=== PATIENT | female | born 1980 | race Caucasian/White ===

== ENCOUNTER 2017-11-21 12:04 | Inpatient (IN) | payer MEDICAID ==
[2017-11-21 12:50] LABS: ADD UMIC NO; UR ASCORBIC ACID NEGATIVE (NEGATIVE); UR BILIRUBIN (Dip) NEGATIVE (NEGATIVE); UR BLOOD (Dip) NEGATIVE (NEGATIVE); UR CLARITY CLEAR (CLEAR); UR COLOR STRAW (YELLOW); UR GLUCOSE (Dip) NEGATIVE (NEGATIVE); UR KETONES (Dip) NEGATIVE (NEGATIVE); UR LEUKOCYTE ESTERASE (Dip) NEGATIVE Leu/ul (NEGATIVE); UR NITRITE (Dip) NEGATIVE (NEGATIVE); UR SPECIFIC GRAVITY (Dip) 1.003 (1.003-1.030); UR TOTAL PROTEIN (Dip) NEGATIVE (NEGATIVE); UR UROBILINOGEN (Dip) NEGATIVE (NEGATIVE)
[2017-11-21 13:42] LABS: ADD MAN DIFF? NO
[2017-11-21 13:44] LABS: BASOPHILS % 0.4 % (0.0-2.0); EOSINOPHILS # 0.2 10^3/ul (0.0-0.5); EOSINOPHILS % 1.5 % (0.0-7.0); HEMATOCRIT 34.3 % (37.0-47.0); LYMPHOCYTES # 2.5 10^3/ul (0.8-2.9); LYMPHOCYTES % 22.9 % (15.0-51.0); MEAN CORPUSCULAR HEMOGLOBIN 28.6 pg (29.0-33.0); MEAN CORPUSCULAR VOLUME 81.7 fl (82.0-101.0); MEAN PLATELET VOLUME 9.5 fl (7.4-10.4); MONOCYTE # 0.8 10^3/ul (0.3-0.9); MONOCYTES % 7.5 % (0.0-11.0); NEUTROPHIL # 7.3 10^3/ul (1.6-7.5); NEUTROPHILS % 66.3 % (39.0-77.0); PLATELET COUNT 324 10^3/UL (140-415); RED CELL DISTRIBUTION WIDTH 13.9 % (11.5-14.5)
[2017-11-21 14:02] LABS: ALANINE AMINOTRANSFERASE 22 IU/L (13-69); ALBUMIN 3.6 g/dl (3.3-4.9); ALKALINE PHOSPHATASE 274 IU/L (42-121); ANION GAP 17 (8-16); ASPARTATE AMINO TRANSFERASE 18 IU/L (15-46); BILIRUBIN,INDIRECT 0.1 mg/dl (0-1.1); BILIRUBIN,TOTAL 0.1 mg/dl (0.2-1.3); BLOOD UREA NITROGEN 4 mg/dl (7-20); CALCIUM 8.9 mg/dl (8.4-10.2); CARBON DIOXIDE 20 mmol/L (21-31); CHLORIDE 108 mmol/L (97-110); CREATININE 0.43 mg/dl (0.44-1.00); GLUCOSE 68 mg/dl (70-220); POTASSIUM 3.5 mmol/L (3.5-5.1); SODIUM 141 mmol/L (135-144); TOTAL PROTEIN 6.6 g/dl (6.1-8.1); URIC ACID 4.1 mg/dl (3.1-7.9)
[2017-11-21 14:03] LABS: INR 1.09; PARTIAL THROMBOPLASTIN TIME 34.5 Sec (25.0-35.0); PROTIME 14.2 Sec (11.9-14.9); PT RATIO 1.1
[2017-11-21] MEDS: BETAMET NA PHOS/AC(6 MG/ML) 5ML INJ IM ×2 (15:30→15:56)
[2017-11-21] MEDS: LACTATED RINGER'S 1,000 ML IV ×3 (15:51→23:37)
[2017-11-21] MEDS: METHYLDOPA 500 MG TAB PO (21:52)
[2017-11-21] MEDS: URSODIOL 300 MG CAP PO (21:53)
[2017-11-22] MEDS: METHYLDOPA 500 MG TAB PO ×3 (01:00→21:37)
[2017-11-22] MEDS: LACTATED RINGER'S 1,000 ML IV ×2 (07:23→15:28)
[2017-11-22 07:55] LABS: ADD MAN DIFF? NO
[2017-11-22 08:03] LABS: WHITE BLOOD COUNT 11.1 10^3/ul (4.8-10.8)
[2017-11-22 08:03] LABS: BASOPHILS % 0.2 % (0.0-2.0); EOSINOPHILS % 0.1 % (0.0-7.0); HEMATOCRIT 33.7 % (37.0-47.0); HEMOGLOBIN 11.5 g/dl (12.0-16.0); LYMPHOCYTES # 2.1 10^3/ul (0.8-2.9); LYMPHOCYTES % 19.1 % (15.0-51.0); MEAN CORPUSCULAR HEMOGLOBIN 28.3 pg (29.0-33.0); MEAN CORPUSCULAR HGB CONC 34.1 g/dl (32.0-37.0); MEAN CORPUSCULAR VOLUME 82.8 fl (82.0-101.0); MEAN PLATELET VOLUME 9.5 fl (7.4-10.4); MONOCYTE # 0.8 10^3/ul (0.3-0.9); MONOCYTES % 6.8 % (0.0-11.0); NEUTROPHILS % 72.1 % (39.0-77.0); PLATELET COUNT 306 10^3/UL (140-415); RED BLOOD COUNT 4.07 10^6/ul (4.20-5.40); RED CELL DISTRIBUTION WIDTH 13.7 % (11.5-14.5)
[2017-11-22 08:17] LABS: INR 1.14; PROTIME 14.8 Sec (11.9-14.9); PT RATIO 1.2
[2017-11-22 08:18] LABS: PARTIAL THROMBOPLASTIN TIME 31.5 Sec (25.0-35.0)
[2017-11-22 08:24] LABS: ALANINE AMINOTRANSFERASE 25 IU/L (13-69); ALBUMIN 3.4 g/dl (3.3-4.9); ALBUMIN/GLOBULIN RATIO 1.13; ALKALINE PHOSPHATASE 255 IU/L (42-121); ANION GAP 18 (8-16); ASPARTATE AMINO TRANSFERASE 15 IU/L (15-46); BILIRUBIN,INDIRECT 0.3 mg/dl (0-1.1); BILIRUBIN,TOTAL 0.3 mg/dl (0.2-1.3); BLOOD UREA NITROGEN 5 mg/dl (7-20); CARBON DIOXIDE 19 mmol/L (21-31); CHLORIDE 111 mmol/L (97-110); CREATININE 0.44 mg/dl (0.44-1.00); GLUCOSE 91 mg/dl (70-220); POTASSIUM 3.7 mmol/L (3.5-5.1); SODIUM 144 mmol/L (135-144); TOTAL PROTEIN 6.4 g/dl (6.1-8.1); URIC ACID 4.6 mg/dl (3.1-7.9)
[2017-11-22] MEDS: DOCUSATE SODIUM 100 MG CAP PO (09:06)
[2017-11-22] MEDS: PRENATAL VITAMIN PO (09:06)
[2017-11-22] MEDS: URSODIOL 300 MG CAP PO ×3 (09:07→21:38)
[2017-11-22] MEDS: BETAMET NA PHOS/AC(6 MG/ML) 5ML INJ IM (15:40)
[2017-11-22 15:56] LABS: COLLECTION PERIOD 24 hrs
[2017-11-22 17:18] LABS: COLLECTION PERIOD 24 hrs; CREATININE,URINE RANDOM 23.73 mg/dl (20-320); VOLUME 5250 ml/24hrs
[2017-11-22 17:19] LABS: CREATININE CLEARANCE 196.6 mls/min (84.0-162.0); SCRET 0.44 mg/dl (0.44-1.00); VOLUME 5250 mls
[2017-11-23] MEDS: LACTATED RINGER'S 1,000 ML IV (00:14)
[2017-11-23] MEDS: PRENATAL VITAMIN PO (09:00)
[2017-11-23] MEDS: URSODIOL 300 MG CAP PO (09:00)
[2017-11-23] MEDS: METHYLDOPA 500 MG TAB PO (09:01)
[2017-11-23] MEDS: DOCUSATE SODIUM 100 MG CAP PO (09:05)
== END 2017-11-23 10:02 | disposition home or self-care (01) | DRG 781 ==
LOC: OBT 12:04 → L-D 12:05 → OBT 15:00 → L-D 15:00
DX: O26.613 Liver and biliary tract disorders in pregnancy, third trimester (principal); K83.1 Obstruction of bile duct; O16.3 Unspecified maternal hypertension, third trimester; Z3A.33 33 weeks gestation of pregnancy
CPT/HCPCS: 76815; 76818; 76820; 80053; 81003; 82575; 84156; 84560; 85025; 85384; 85610; 85730

== ENCOUNTER 2017-11-26 12:32 | Outpatient (CLI) | payer MEDICAID ==
[2017-11-26 13:50] LABS: ADD MAN DIFF? NO
[2017-11-26 13:52] LABS: WHITE BLOOD COUNT 13.9 10^3/ul (4.8-10.8)
[2017-11-26 13:52] LABS: BASOPHIL # 0.1 10^3/ul (0.0-0.1); BASOPHILS % 0.4 % (0.0-2.0); EOSINOPHILS # 0.2 10^3/ul (0.0-0.5); EOSINOPHILS % 1.7 % (0.0-7.0); HEMATOCRIT 37.5 % (37.0-47.0); HEMOGLOBIN 12.9 g/dl (12.0-16.0); LYMPHOCYTES # 2.5 10^3/ul (0.8-2.9); LYMPHOCYTES % 18.2 % (15.0-51.0); MEAN CORPUSCULAR HEMOGLOBIN 28.2 pg (29.0-33.0); MEAN CORPUSCULAR HGB CONC 34.4 g/dl (32.0-37.0); MEAN CORPUSCULAR VOLUME 81.9 fl (82.0-101.0); MEAN PLATELET VOLUME 9.2 fl (7.4-10.4); MONOCYTE # 1.1 10^3/ul (0.3-0.9); MONOCYTES % 8.1 % (0.0-11.0); NEUTROPHIL # 9.7 10^3/ul (1.6-7.5); NEUTROPHILS % 69.8 % (39.0-77.0); PLATELET COUNT 337 10^3/UL (140-415); RED BLOOD COUNT 4.58 10^6/ul (4.20-5.40)
[2017-11-26 14:11] LABS: URIC ACID 3.8 mg/dl (3.1-7.9)
[2017-11-26 14:12] LABS: ALANINE AMINOTRANSFERASE 25 IU/L (13-69); ALBUMIN 3.8 g/dl (3.3-4.9); ALBUMIN/GLOBULIN RATIO 1.08; ALKALINE PHOSPHATASE 286 IU/L (42-121); ANION GAP 18 (8-16); ASPARTATE AMINO TRANSFERASE 15 IU/L (15-46); BILIRUBIN,INDIRECT 0.3 mg/dl (0-1.1); BILIRUBIN,TOTAL 0.3 mg/dl (0.2-1.3); BLOOD UREA NITROGEN 7 mg/dl (7-20); CALCIUM 9.9 mg/dl (8.4-10.2); CARBON DIOXIDE 19 mmol/L (21-31); CHLORIDE 108 mmol/L (97-110); CREATININE 0.43 mg/dl (0.44-1.00); GLUCOSE 79 mg/dl (70-220); POTASSIUM 3.7 mmol/L (3.5-5.1); SODIUM 141 mmol/L (135-144); TOTAL PROTEIN 7.3 g/dl (6.1-8.1)
[2017-11-26 14:27] LABS: ADD UMIC NO; UR ASCORBIC ACID NEGATIVE (NEGATIVE); UR BILIRUBIN (Dip) NEGATIVE (NEGATIVE); UR BLOOD (Dip) NEGATIVE (NEGATIVE); UR CLARITY CLEAR (CLEAR); UR COLOR STRAW (YELLOW); UR GLUCOSE (Dip) NEGATIVE (NEGATIVE); UR KETONES (Dip) NEGATIVE (NEGATIVE); UR LEUKOCYTE ESTERASE (Dip) NEGATIVE Leu/ul (NEGATIVE); UR NITRITE (Dip) NEGATIVE (NEGATIVE); UR SPECIFIC GRAVITY (Dip) 1.003 (1.003-1.030); UR TOTAL PROTEIN (Dip) NEGATIVE (NEGATIVE); UR UROBILINOGEN (Dip) NEGATIVE (NEGATIVE)
== END 2017-11-26 16:04 | disposition home or self-care (01) ==
LOC: OBT 12:32 → L-D 12:34 → OBT 16:04
DX: O24.410 Gestational diabetes mellitus in pregnancy, diet controlled (principal); Z3A.34 34 weeks gestation of pregnancy
CPT/HCPCS: 76815; 80053; 81003; 84560; 85025

== ENCOUNTER 2017-11-28 08:37 | Outpatient (CLI) | payer MEDICAID ==
[2017-11-28 09:29] LABS: ADD MAN DIFF? NO
[2017-11-28 09:35] LABS: BASOPHILS % 0.3 % (0.0-2.0); EOSINOPHILS # 0.2 10^3/ul (0.0-0.5); EOSINOPHILS % 1.6 % (0.0-7.0); HEMATOCRIT 35.3 % (37.0-47.0); HEMOGLOBIN 12.2 g/dl (12.0-16.0); LYMPHOCYTES # 2.3 10^3/ul (0.8-2.9); LYMPHOCYTES % 19.4 % (15.0-51.0); MEAN CORPUSCULAR HEMOGLOBIN 28.1 pg (29.0-33.0); MEAN CORPUSCULAR HGB CONC 34.6 g/dl (32.0-37.0); MEAN CORPUSCULAR VOLUME 81.3 fl (82.0-101.0); MEAN PLATELET VOLUME 9.4 fl (7.4-10.4); MONOCYTES % 8.5 % (0.0-11.0); NEUTROPHIL # 8.1 10^3/ul (1.6-7.5); NEUTROPHILS % 68.3 % (39.0-77.0); NUCLEATED RED BLOOD CELLS% 0.3 /100WBC (0.0-0.0); PLATELET COUNT 319 10^3/UL (140-415); RED BLOOD COUNT 4.34 10^6/ul (4.20-5.40); RED CELL DISTRIBUTION WIDTH 14.2 % (11.5-14.5)
[2017-11-28 09:35] LABS: WHITE BLOOD COUNT 11.8 10^3/ul (4.8-10.8)
[2017-11-28 09:39] LABS: COLLECTION PERIOD 24 hrs
[2017-11-28 09:50] LABS: ALANINE AMINOTRANSFERASE 21 IU/L (13-69); ALBUMIN 3.7 g/dl (3.3-4.9); ALBUMIN/GLOBULIN RATIO 1.08; ALKALINE PHOSPHATASE 321 IU/L (42-121); ANION GAP 18 (8-16); ASPARTATE AMINO TRANSFERASE 15 IU/L (15-46); BILIRUBIN,INDIRECT 0.2 mg/dl (0-1.1); BILIRUBIN,TOTAL 0.2 mg/dl (0.2-1.3); BLOOD UREA NITROGEN 5 mg/dl (7-20); CALCIUM 8.9 mg/dl (8.4-10.2); CARBON DIOXIDE 21 mmol/L (21-31); CHLORIDE 107 mmol/L (97-110); CREATININE 0.42 mg/dl (0.44-1.00); GLUCOSE 78 mg/dl (70-220); POTASSIUM 3.7 mmol/L (3.5-5.1); SODIUM 142 mmol/L (135-144); TOTAL PROTEIN 7.1 g/dl (6.1-8.1); URIC ACID 4.2 mg/dl (3.1-7.9)
[2017-11-28 09:54] LABS: INR 1.08; PROTIME 14.1 Sec (11.9-14.9); PT RATIO 1.1
[2017-11-28 09:55] LABS: PARTIAL THROMBOPLASTIN TIME 32.6 Sec (25.0-35.0)
[2017-11-28 10:08] LABS: COLLECTION PERIOD 24 hrs; CREATININE CLEARANCE 141.7 mls/min (84.0-162.0); CREATININE,URINE RANDOM 34.69 mg/dl (20-320); SCRET 0.42 mg/dl (0.44-1.00); VOLUME 2470 ml/24hrs; VOLUME 2470 mls
[2017-11-28 10:09] LABS: 24HR URINE TOTAL PROTEIN 370.5 mg/24hrs (42.0-225.0)
== END 2017-11-28 11:10 | disposition home or self-care (01) ==
LOC: OBT 08:37 → L-D 08:39 → OBT 11:10
DX: O26.893 Other specified pregnancy related conditions, third trimester (principal); R10.9 Unspecified abdominal pain; R10.2 Pelvic and perineal pain; Z3A.34 34 weeks gestation of pregnancy
CPT/HCPCS: 36415; 76818; 80053; 82575; 84156; 84560; 85025; 85610; 85730

== ENCOUNTER 2017-12-11 18:42 | Inpatient (IN) | payer MEDICAID ==
[2017-12-11 19:35] LABS: ALANINE AMINOTRANSFERASE 18 IU/L (13-69); ALBUMIN 3.4 g/dl (3.3-4.9); ALKALINE PHOSPHATASE 404 IU/L (42-121); ANION GAP 17 (8-16); ASPARTATE AMINO TRANSFERASE 14 IU/L (15-46); BILIRUBIN,INDIRECT 0.1 mg/dl (0-1.1); BILIRUBIN,TOTAL 0.1 mg/dl (0.2-1.3); BLOOD UREA NITROGEN 5 mg/dl (7-20); CARBON DIOXIDE 21 mmol/L (21-31); CHLORIDE 107 mmol/L (97-110); CREATININE 0.56 mg/dl (0.44-1.00); GLUCOSE 90 mg/dl (70-220); POTASSIUM 3.7 mmol/L (3.5-5.1); SODIUM 141 mmol/L (135-144); TOTAL PROTEIN 6.8 g/dl (6.1-8.1)
[2017-12-11] MEDS ORDERED: CARBOPROST 250 MCG INJ IM (20:30)
[2017-12-11] MEDS ORDERED: OXYTOCIN 30 UNITS/LR 500 ML IV (20:30)
[2017-12-11] MEDS ORDERED: MISOPROSTOL 200 MCG TAB PR (20:30)
[2017-12-11] MEDS ORDERED: METHYLERGONOVINE 0.2 MG INJ IM (20:30)
[2017-12-11 20:48] LABS: ADD UMIC NO; UR ASCORBIC ACID NEGATIVE (NEGATIVE); UR BILIRUBIN (Dip) NEGATIVE (NEGATIVE); UR BLOOD (Dip) NEGATIVE (NEGATIVE); UR CLARITY CLEAR (CLEAR); UR COLOR YELLOW (YELLOW); UR GLUCOSE (Dip) NEGATIVE (NEGATIVE); UR KETONES (Dip) NEGATIVE (NEGATIVE); UR LEUKOCYTE ESTERASE (Dip) NEGATIVE Leu/ul (NEGATIVE); UR NITRITE (Dip) NEGATIVE (NEGATIVE); UR SPECIFIC GRAVITY (Dip) 1.006 (1.003-1.030); UR TOTAL PROTEIN (Dip) NEGATIVE (NEGATIVE); UR UROBILINOGEN (Dip) NEGATIVE (NEGATIVE)
[2017-12-11 20:50] LABS: ADD MAN DIFF? NO
[2017-12-11 20:52] LABS: WHITE BLOOD COUNT 10.9 10^3/ul (4.8-10.8)
[2017-12-11 20:52] LABS: BASOPHILS % 0.3 % (0.0-2.0); EOSINOPHILS # 0.1 10^3/ul (0.0-0.5); EOSINOPHILS % 1.3 % (0.0-7.0); HEMOGLOBIN 12.3 g/dl (12.0-16.0); LYMPHOCYTES # 2.4 10^3/ul (0.8-2.9); LYMPHOCYTES % 22.3 % (15.0-51.0); MEAN CORPUSCULAR HEMOGLOBIN 27.8 pg (29.0-33.0); MEAN CORPUSCULAR HGB CONC 34.2 g/dl (32.0-37.0); MEAN CORPUSCULAR VOLUME 81.4 fl (82.0-101.0); MEAN PLATELET VOLUME 9.8 fl (7.4-10.4); MONOCYTE # 0.9 10^3/ul (0.3-0.9); MONOCYTES % 8.5 % (0.0-11.0); NEUTROPHIL # 7.4 10^3/ul (1.6-7.5); NEUTROPHILS % 67.1 % (39.0-77.0); PLATELET COUNT 338 10^3/UL (140-415); RED BLOOD COUNT 4.42 10^6/ul (4.20-5.40); RED CELL DISTRIBUTION WIDTH 13.6 % (11.5-14.5)
[2017-12-11 21:13] LABS: PROTIME 13.3 Sec (11.9-14.9)
[2017-12-11 21:14] LABS: PARTIAL THROMBOPLASTIN TIME 34.7 Sec (25.0-35.0)
[2017-12-11] MEDS: URSODIOL 300 MG CAP PO (21:21)
[2017-12-11] MEDS: METHYLDOPA 500 MG TAB PO (21:21)
[2017-12-11] MEDS: BETAMET NA PHOS/AC(6 MG/ML) 5ML INJ IM (21:22)
[2017-12-11 21:44] LABS: HEPATITIS B SURFACE ANTIGEN NEGATIVE (NEGATIVE)
[2017-12-11] MEDS: LACTATED RINGER'S 1,000 ML IV (22:00)
[2017-12-12] MEDS: DEXTROSE 5%-LR 1,000 ML IV (01:30)
[2017-12-12] MEDS: LACTATED RINGER'S 1,000 ML IV ×4 (06:40→20:25)
[2017-12-12] MEDS ORDERED: OXYTOCIN 30 UNITS/LR 500 ML BAG IV (07:00)
[2017-12-12] MEDS: URSODIOL 300 MG CAP PO ×2 (08:39→21:00)
[2017-12-12] MEDS: METHYLDOPA 500 MG TAB PO ×2 (08:39→21:00)
[2017-12-12] MEDS: BETAMET NA PHOS/AC(6 MG/ML) 5ML INJ IM (08:56)
[2017-12-12 15:07] LABS: RAPID PLASMA REAGIN NONREACTIVE (NR)
[2017-12-12] MEDS ORDERED: TERBUTALINE 1 MG/ML INJ SC (17:30)
[2017-12-12] MEDS ORDERED: BUPIVACAINE 0.75%/DEXT (SPINAL) 2 ML INJ (21:13)
[2017-12-12] MEDS ORDERED: morphine SULFATE/PF (10 MG/10 ML) INJ (21:14)
[2017-12-12] MEDS ORDERED: PHENYLephrine (100 MCG/ML) 5ML SYG ×2 (21:48→22:33)
[2017-12-12] MEDS ORDERED: FENTAnyl 50 MCG/ML VIAL (22:24)
[2017-12-12] MEDS: OXYTOCIN 30 UNITS/LR 500 ML IV (23:14)
[2017-12-12] MEDS: CEFAZOLIN 2 GM/50 ML (PMX) 50 ML IV (23:15)
[2017-12-12] MEDS ORDERED: MISOPROSTOL 200 MCG TAB PR (23:30)
[2017-12-12] MEDS ORDERED: METHYLERGONOVINE 0.2 MG TAB PO (23:30)
[2017-12-12] MEDS ORDERED: LANOLIN 7 GM TUBE TOP (23:30)
[2017-12-12] MEDS ORDERED: METHYLERGONOVINE 0.2 MG INJ IM (23:30)
[2017-12-12] MEDS ORDERED: OXYTOCIN 30 UNITS/LR 500 ML IV (23:30)
[2017-12-12] MEDS ORDERED: CARBOPROST 250 MCG INJ IM (23:30)
[2017-12-12] MEDS: KETOROLAC 30 MG INJ IV (23:36)
[2017-12-13] MEDS ORDERED: DIPHENHYDRAMINE 50 MG INJ IV ×2
[2017-12-13] MEDS ORDERED: NALOXONE (0.4 MG/ML) INJ IV
[2017-12-13] MEDS ORDERED: ZOLPIDEM 5 MG TAB PO
[2017-12-13] MEDS ORDERED: HYDROmorphONE 0.5 MG/0.5 ML SYG IV ×2
[2017-12-13] MEDS ORDERED: KETOROLAC 30 MG INJ IV ×2
[2017-12-13] MEDS ORDERED: FENTAnyl 50 MCG/ML VIAL IV ×2
[2017-12-13] MEDS ORDERED: HYDROmorphONE (0.2 MG/ML) 10ML SYG IV ×2
[2017-12-13] MEDS ORDERED: ALBUTEROL 0.083% (NEB) 2.5 MG/3 ML AMP HHN
[2017-12-13] MEDS ORDERED: METOCLOPRAMIDE 10 MG INJ IV
[2017-12-13] MEDS ORDERED: ONDANSETRON 4 MG INJ IV ×2
[2017-12-13] MEDS: OXYTOCIN 30 UNITS/LR 500 ML IV (03:02)
[2017-12-13] MEDS: DEXTROSE 5%-LR 1,000 ML IV (07:28)
[2017-12-13] MEDS: SENNA/DOCUSATE NA (8.6MG/50MG) TAB PO ×2 (09:23→21:19)
[2017-12-13 09:37] LABS: ADD MAN DIFF? NO
[2017-12-13 09:40] LABS: WHITE BLOOD COUNT 16.3 10^3/ul (4.8-10.8)
[2017-12-13 09:40] LABS: BASOPHILS % 0.1 % (0.0-2.0); EOSINOPHILS % 0.1 % (0.0-7.0); HEMATOCRIT 34.6 % (37.0-47.0); HEMOGLOBIN 11.8 g/dl (12.0-16.0); LYMPHOCYTES # 2.6 10^3/ul (0.8-2.9); LYMPHOCYTES % 15.9 % (15.0-51.0); MEAN CORPUSCULAR HEMOGLOBIN 27.9 pg (29.0-33.0); MEAN CORPUSCULAR HGB CONC 34.1 g/dl (32.0-37.0); MEAN CORPUSCULAR VOLUME 81.8 fl (82.0-101.0); MEAN PLATELET VOLUME 9.9 fl (7.4-10.4); MONOCYTE # 1.1 10^3/ul (0.3-0.9); MONOCYTES % 6.9 % (0.0-11.0); NEUTROPHIL # 12.4 10^3/ul (1.6-7.5); NEUTROPHILS % 76.1 % (39.0-77.0); PLATELET COUNT 328 10^3/UL (140-415); RED BLOOD COUNT 4.23 10^6/ul (4.20-5.40); RED CELL DISTRIBUTION WIDTH 13.9 % (11.5-14.5)
[2017-12-13] MEDS: METHYLDOPA 500 MG TAB PO ×2 (10:35→21:20)
[2017-12-13] MEDS: URSODIOL 300 MG CAP PO ×2 (10:35→21:19)
[2017-12-13] MEDS: OXYCODONE/ACETAMINOPHEN (5/325) TAB PO (23:32)
[2017-12-14] MEDS: IBUPROFEN 800 MG TAB PO ×3 (05:42→22:19)
[2017-12-14] MEDS: URSODIOL 300 MG CAP PO ×2 (08:59→20:44)
[2017-12-14] MEDS: SENNA/DOCUSATE NA (8.6MG/50MG) TAB PO ×2 (08:59→20:44)
[2017-12-14] MEDS: METHYLDOPA 500 MG TAB PO ×2 (08:59→20:44)
[2017-12-14] MEDS: OXYCODONE/ACETAMINOPHEN (5/325) TAB PO ×4 (09:00→23:52)
[2017-12-15] MEDS: IBUPROFEN 800 MG TAB PO ×2 (05:39→13:09)
[2017-12-15] MEDS: OXYCODONE/ACETAMINOPHEN (5/325) TAB PO (08:31)
[2017-12-15] MEDS: SENNA/DOCUSATE NA (8.6MG/50MG) TAB PO (08:31)
[2017-12-15] MEDS: URSODIOL 300 MG CAP PO (08:31)
[2017-12-15] MEDS: METHYLDOPA 500 MG TAB PO (08:32)
[2017-12-15] MEDS: DIPHTH/TET/ACEL PERTUSS (ADULT) 0.5 ML VIAL IM* (09:00)
[2017-12-15] MEDS: MEASLES,MUMPS,RUBELLA VACCINE INJ SC* (09:54)
== END 2017-12-15 16:03 | disposition home or self-care (01) | DRG 765 ==
LOC: OBT 18:42 → L-D 12-12 06:43 → PP1 12-13 01:23 → L-D 18:43 → OBT 19:12 → L-D 12-12 21:12
PROVIDERS: Obstetrics & Gynecology
PROC: 10D00Z1 Extraction of Products of Conception, Low, Open Approach (ICD-10-PCS; principal; 2017-12-12 19:30)
PROC: 10D00Z1 Extraction of Products of Conception, Low, Open Approach (ICD-10-PCS; 2017-12-12 19:30)
PROC: 0UL70ZZ Occlusion of Bilateral Fallopian Tubes, Open Approach (ICD-10-PCS; 2017-12-12 19:30)
DX: O34.211 Maternal care for low transverse scar from previous cesarean delivery (principal); K83.1 Obstruction of bile duct; O60.14X0 Preterm labor third trimester with preterm delivery third trimester, not applicable or unspecified; O10.92 Unspecified pre-existing hypertension complicating childbirth; O26.62 Liver and biliary tract disorders in childbirth; Z30.2 Encounter for sterilization; Z3A.36 36 weeks gestation of pregnancy; Z37.0 Single live birth
CPT/HCPCS: 36415; 76818; 80053; 81003; 85025; 85610; 85730; 86592; 86850; 86900; 86901; 87340; 88302; 94760; 99464